=== PATIENT | male | born 1995 | race Caucasian/White ===

== ENCOUNTER 2018-06-03 16:34 | Emergency (ER) | payer MEDICAID, OTHER ==
[~2018-06-03] VITALS: Ht 180.3 cm; Wt 113.4 kg
--- NOTE | 2018-06-03 16:53 | ED Lower Extremity ---
General Stated Complaint: BRUISE;SWELLING;WARM Source: patient, caregiver Exam Limitations: no limitations History of Present Illness Date Seen by Provider: Jun 03, 2018 Time Seen by Provider: 16:49 Initial Comments Patient is a 23-year-old male who presents to the emergency room with complaints of a bruise to his left lateral and posterior thigh. He reports that 1 week ago he was at a swimming event at the [facility] in [facility] when he slipped and fell onto that left thigh. He is brought in by his care workers with concerns with the bruise is changing colors and has a warmer feel to it. Denies pain, was able to ambulate without difficulty. Onset: last week Pain/Injury Location: left knee Method of Injury: fell Allergies and Home Medications Patient Home Medication List Home Medication List Reviewed: Yes Review of Systems Constitutional: see HPI; No chills, No fever Skin: see HPI, other (bruising to his left lateral and posterior thigh.) All Other Systems Reviewed Negative Unless Noted: Yes Past Soczoza-Gqwoji-Xuvdal Hx Past Med/Social Hx: Reviewed Nursing Past Med/Soc Hx Family Medical History Reviewed Nursing Family Hx Physical Exam Vital Signs Vital Signs - First Documented 06/03/18 16:44 Temp 96.9 Pulse 84 Resp 19 B/P (MAP) 142/69 (93) Pulse Ox 97 O2 Delivery Room Air Capillary Refill : Height, Weight, BMI Height: '" Weight: lbs. oz. kg; BMI Method: General Appearance: WD/WN, no apparent distress Neck: non-tender, full range of motion, supple, normal inspection Cardiovascular: regular rate, rhythm, no edema, no gallop, no JVD, no murmur Respiratory: chest non-tender, lungs clear, normal breath sounds, no respiratory distress, no accessory muscle use Legs: left leg ecchymosis (there is a large area of ecchymosis at different stages of healing on his left inner thigh and posterior thigh. There is approximately a 10 x 10cm area of ecchymosis. The patient is nontender on exam.) Neurologic/Psychiatric: alert, normal mood/affect, oriented x 3 Skin: normal color, warm/dry Progress/Results/Core Measures Results/Orders Vital Signs/I&O 06/03/18 06/03/18 16:44 16:58 Temp 96.9 96.9 Pulse 84 84 Resp 19 19 B/P (MAP) 142/69 (93) 142/69 (93) Pulse Ox 97 97 O2 Delivery Room Air Progress Progress Note : Time: 16:50 Progress Note I have seen and evaluated the patient. The patient is not tender and he is able to bare weight with out difficulty. The bruise is a and advanced state of healing. I am not ordering imaging due to no pain, full range of motion with out pain, non tender on palpation. He agrees with plans for discharge and return precautions were given. Departure Impression Primary Impression: Ecchymosis Additional Impression: Contusion Disposition: 01 HOME, SELF-CARE Condition: Stable/Unchanged Departure-Patient Inst. Decision time for Depature: 16:52 Referrals: NO,LOCAL PHYSICIAN (PCP) Primary Care Physician Patient Instructions: Contusion (DC), LOCAL PHYSICIAN LIST Add. Discharge Instructions: Continue to use ibuprofen and Tylenol as directed by the bottle for pain. He may use ice to the sore areas to help with inflammation. Return back to the emergency room for any worsening symptoms. Follow-up with a primary care provider within 1 week for recheck. Images Extremities-Lower 1 - Ecchymosis VILMA ROBERSON Jun 03, 2018 16:53
[2018-06-03 16:58] VITALS: BP 142/69
--- OUTSIDE RECORDS SUMMARY | 2018-06-03 19:12 | XMS REPORT ---
Author Author [facility] Medical Staff Organization [facility] Address [address] [facility] [place] [id number] Phone [phone] Care Team Providers Care Granite Polisher Machine Name Role Phone TRI CUNNINGHAM, KLAUDIA PHILLIPS Unavailable Summary purpose CCDA Sent to [facility] Chief Complaint and Reason for Visit No authorized Reason for Visit (Admitting Diagnosis) is available for this visit. Problem list No authorized problems tracked for continuity of care are available for this visit. Encounters No authorized problems tracked for encounter diagnoses are available for this visit. Medications No medications recorded for this patient visit Allergies, adverse reactions, alerts No allergy information is available for this patient. Immunizations No immunizations recorded for this patient visit Relevant diagnostic tests and/or laboratory data No authorized results are available for this patient visit History of procedures Procedure Code Code Type Description Date Performed Performing Physician 97841 CPT-4 BL SMEAR W/DIFF WBC COUNT 01-26-2017 KLAUDIA BARTLETT 06543 CPT-4 COMPLETE CBC, AUTOMATED 01-26-2017 KLAUDIA BARTLETT Functional status No functional or cognitive status observations are available for this visit. Vital signs No authorized vital signs are available for this visit. Social history No Social History or smoking status observations were recorded for this visit. ( Unknown if ever smoked.) Treatment Plan No treatment plan text is available for this visit. Hospital discharge instructions No discharge instruction text is available for this visit.
--- OUTSIDE RECORDS SUMMARY | 2018-06-03 19:12 | XMS REPORT ---
Author Author [facility] Medical Staff Organization [facility] Address [address] [facility] [place] [id number] Phone [phone] Care Team Providers Care Hardware Design Engineer Name Role Phone TRI CUNNINGHAM, KLAUDIA PHILLIPS Unavailable Summary purpose CCDA Sent to [facility] Chief Complaint and Reason for Visit No [...] Code Type Description Date Performed Performing Physician 38418 CPT-4 COMPLETE CBC W/AUTO DIFF WBC 02-27-2017 KLAUDIA BARTLETT Functional status No functional or [...]
--- OUTSIDE RECORDS SUMMARY | 2018-06-03 19:12 | XMS REPORT ---
Author Author [facility] Medical Staff Organization [facility] Address [address] [place], [place] [address] Phone [phone] Care Team Providers Care Photographic Equipment Inspector Name Role Phone TRI CUNNINGHAM, KLAUDIA PHILLIPS Unavailable Summary purpose CCDA Sent to [facility] Chief Complaint and Reason for Visit Admit Diagnosis 1 HIGH RISK MEDS Problem list No authorized problems tracked for [...] Code Type Description Date Performed Performing Physician 80896 CPT-4 ROUTINE VENIPUNCTURE 04-20-2017 KLAUDIA BARTLETT 20964 CPT-4 COMPLETE CBC W/AUTO DIFF WBC 04-20-2017 KLAUDIA BARTLETT Functional status No functional or [...]
--- OUTSIDE RECORDS SUMMARY | 2018-06-03 19:12 | XMS REPORT ---
Author Author [facility] Medical Staff Organization [facility] Address [address] [facility] [place] [id number] Phone [phone] Care Team Providers Care Bevel Mill Operator Name Role Phone TRI CUNNINGHAM, KLAUDIA PHILLIPS Unavailable Summary purpose CCDA Sent to [facility] Chief Complaint and Reason for Visit [...] Code Type Description Date Performed Performing Physician 46358 CPT-4 ROUTINE VENIPUNCTURE 03-16-2017 KLAUDIA BARTLETT 22287 CPT-4 COMPLETE CBC W/AUTO DIFF WBC 03-16-2017 KLAUDIA BARTLETT Functional status No functional or [...]
--- OUTSIDE RECORDS SUMMARY | 2018-06-03 19:12 | XMS REPORT ---
Author Author [facility] Medical Staff Organization [facility] Address [address] [id number] Phone [phone] Care Team Providers Care Director Experimental Medicine Name Role Phone TRI CUNNINGHAM, KLAUDIA PHILLIPS Unavailable Summary purpose CCDA Sent to [facility] Chief Complaint and Reason for [...] Code Type Description Date Performed Performing Physician 95222 CPT-4 COMPLETE CBC W/AUTO DIFF WBC 02-02-2017 KLAUDIA BARTLETT Functional status No functional or [...]
--- OUTSIDE RECORDS SUMMARY | 2018-06-03 19:12 | XMS REPORT ---
Author Author [facility] Medical Staff Organization [facility] Address [address] [place] [id number] Phone [phone] Care Team Providers Care Component Assembler Name Role Phone TRI CUNNINGHAM, KLAUDIA PHILLIPS Unavailable Summary purpose CCDA Sent to [facility] Chief Complaint and Reason for Visit [...] Code Type Description Date Performed Performing Physician 19843 CPT-4 COMPLETE CBC W/AUTO DIFF WBC 04-03-2017 KLAUDIA BARTLETT Functional status No functional or [...]
--- OUTSIDE RECORDS SUMMARY | 2018-06-03 19:12 | XMS REPORT ---
Author Author [facility] Medical Staff Organization [facility] Address [address] [place] [id number] Phone [phone] Care Team Providers Care Facility Worker Name Role Phone TRI CUNNINGHAM, KLAUDIA PHILLIPS Unavailable Summary purpose CCDA Sent to [facility] Chief Complaint and Reason for [...] Code Type Description Date Performed Performing Physician 21348 CPT-4 BL SMEAR W/DIFF WBC COUNT 2017 KLAUDIA BARTLETT 34542 CPT-4 COMPLETE CBC, AUTOMATED 2017 KLAUDIA BARTLETT Functional status No functional or [...]
--- OUTSIDE RECORDS SUMMARY | 2018-06-03 19:12 | XMS REPORT ---
Author Author [facility] Medical Staff Organization [facility] Address [address] [facility] [place] [id number] Phone [phone] Care Team Providers Care Control Supervisor Name Role Phone TRI CUNNINGHAM, KLAUDIA PHILLIPS Unavailable Summary purpose CCDA Sent to [facility] Chief Complaint and Reason for Visit [...] Code Type Description Date Performed Performing Physician 01052 CPT-4 BL SMEAR W/DIFF WBC COUNT 01-12-2017 KLAUDIA BARTLETT 66307 CPT-4 COMPLETE CBC, AUTOMATED 01-12-2017 KLAUDIA BARTLETT Functional status No functional or [...]
--- OUTSIDE RECORDS SUMMARY | 2018-06-03 19:12 | XMS REPORT ---
Author Author [facility] Medical Staff Organization [facility] Address [address] [place] [place] [address] Phone [phone] Care Team Providers Care Integrity Manager Name Role Phone TRI CUNNINGHAM, KLAUDIA PHILLIPS Unavailable Summary purpose CCDA Sent to [facility] Chief Complaint and Reason for Visit [...] Code Type Description Date Performed Performing Physician 78286 CPT-4 ROUTINE VENIPUNCTURE 03-30-2017 KLAUDIA BARTLETT 47751 CPT-4 BL SMEAR W/DIFF WBC COUNT 03-30-2017 KLAUDIA BARTLETT 50590 CPT-4 COMPLETE CBC, AUTOMATED 03-30-2017 KLAUDIA BARTLETT Functional status No functional or [...]
--- OUTSIDE RECORDS SUMMARY | 2018-06-03 19:13 | XMS REPORT ---
Author Author [facility] Medical Staff Organization [facility] Address [address] [facility] [place] [id number] Phone [phone] Care Team Providers Care Placement Secretary Name Role Phone TRI CUNNINGHAM, KLAUDIA PHILLIPS Unavailable Summary purpose CCDA Sent to [facility] Chief Complaint and Reason for Visit No [...] Code Type Description Date Performed Performing Physician 23698 CPT-4 ROUTINE VENIPUNCTURE 04-01-2017 KLAUDIA BARTLETT 81855 CPT-4 COMPLETE CBC W/AUTO DIFF WBC 04-01-2017 KLAUDIA BARTLETT Functional status No functional or [...]
--- OUTSIDE RECORDS SUMMARY | 2018-06-03 19:13 | XMS REPORT ---
Author Author [facility] Medical Staff Organization [facility] Address [address] [place] [id number] Phone [phone] Care Team Providers Care Cyber Security Specialist Name Role Phone TRI CUNNINGHAM, KLAUDIA PHILLIPS Unavailable Summary purpose CCDA Sent to [facility] Chief Complaint and Reason for Visit [...] Code Type Description Date Performed Performing Physician 52072 CPT-4 COMPLETE CBC W/AUTO DIFF WBC 04-13-2017 KLAUDIA BARTLETT Functional status No functional or [...]
--- OUTSIDE RECORDS SUMMARY | 2018-06-03 19:13 | XMS REPORT ---
Author Author [facility] Medical Staff Organization [facility] Address [address] [place], [place] [address] Phone [phone] Summary purpose CCDA Sent to [facility] Chief Complaint and Reason for Visit Admit Diagnosis 1 ADHD, ODD Problem list No authorized problems tracked for [...] Code Type Description Date Performed Performing Physician 51670 CPT-4 COMPREHEN METABOLIC PANEL 11-03-2016 KLAUDIA BARTLETT 00834 CPT-4 GLYCOSYLATED HEMOGLOBIN TEST 11-03-2016 KLAUDIA BARTLETT 22494 CPT-4 LIPID PANEL 11-03-2016 KLAUDIA BARTLETT 35946 CPT-4 ASSAY THYROID STIM HORMONE 11-03-2016 KLAUDIA BARTLETT 76180 CPT-4 ASSAY, DIPROPYLACETIC ACID 11-03-2016 KLAUDIA BARTLETT 96675 CPT-4 COMPLETE CBC W/AUTO DIFF WBC 11-03-2016 KLAUDIA BARTLETT Functional status No functional or [...]
--- OUTSIDE RECORDS SUMMARY | 2018-06-03 19:13 | XMS REPORT ---
Author Author [facility] Medical Staff Organization [facility] Address [address] [place] [id number] Phone [phone] Care Team Providers Care Patient Registration Manager Name Role Phone TRI CUNNINGHAM, KLAUDIA PHILLIPS Unavailable Summary purpose CCDA Sent to [facility] Chief Complaint and Reason for [...] Code Type Description Date Performed Performing Physician 94596 CPT-4 COMPLETE CBC W/AUTO DIFF WBC 01-05-2017 KLAUDIA BARTLETT Functional status No functional or [...]
--- OUTSIDE RECORDS SUMMARY | 2018-06-03 19:13 | XMS REPORT ---
Author Author [facility] Medical Staff Organization [facility] Address [address] [facility] [place] [id number] Phone [phone] Care Team Providers Care Cryptologic Supervisor Name Role Phone TRI CUNNINGHAM, KLAUDIA PHILLIPS Unavailable Summary purpose CCDA Sent to [facility] Chief Complaint and Reason for [...] Code Type Description Date Performed Performing Physician 70266 CPT-4 BL SMEAR W/DIFF WBC COUNT 01-19-2017 KLAUDIA BARTLETT 19108 CPT-4 COMPLETE CBC, AUTOMATED 01-19-2017 KLAUDIA BARTLETT Functional status No functional or [...]
--- OUTSIDE RECORDS SUMMARY | 2018-06-03 19:13 | XMS REPORT ---
Author Author [facility] Medical Staff Organization [facility] Address [address] [place] [address] Phone [phone] Summary purpose CCDA Sent to [facility] Chief Complaint and Reason for [...] Code Type Description Date Performed Performing Physician 66224 CPT-4 BL SMEAR W/DIFF WBC COUNT 12-01-2016 KLAUDIA BARTLETT 05322 CPT-4 COMPLETE CBC, AUTOMATED 12-01-2016 KLAUDIA BARTLETT Functional status No functional or [...]
--- OUTSIDE RECORDS SUMMARY | 2018-06-03 19:13 | XMS REPORT ---
Author Author [facility] Medical Staff Organization [facility] Address [address] [place] [id number] Phone [phone] Summary purpose CCDA Sent to [facility] Chief Complaint and Reason for Visit [...] Code Type Description Date Performed Performing Physician 94818 CPT-4 COMPLETE CBC W/AUTO DIFF WBC 11-24-2016 KLAUDIA BARTLETT Functional status No functional or [...]
--- OUTSIDE RECORDS SUMMARY | 2018-06-03 19:13 | XMS REPORT ---
Author Author [facility] Medical Staff Organization [facility] Address [address] [facility] [place] [id number] Phone [phone] Care Team Providers Care Human Resources Advisor Name Role Phone TRI CUNNINGHAM, KLAUDIA PHILLIPS Unavailable Summary purpose CCDA Sent to [facility] Chief Complaint and Reason for Visit [...] Code Type Description Date Performed Performing Physician 40187 CPT-4 BL SMEAR W/DIFF WBC COUNT 12-22-2016 KLAUDIA BARTLETT 76710 CPT-4 COMPLETE CBC, AUTOMATED 12-22-2016 KLAUDIA BARTLETT Functional status No functional or [...]
--- OUTSIDE RECORDS SUMMARY | 2018-06-03 19:13 | XMS REPORT ---
Author Author [facility] Medical Staff Organization [facility] Address [address] [place] [id number] Phone [phone] Care Team Providers Care Still Operator Name Role Phone TRI CUNNINGHAM, KLAUDIA PHILLIPS Unavailable Summary purpose CCDA Sent to [facility] Chief Complaint and Reason for Visit No [...] Code Type Description Date Performed Performing Physician 03250 CPT-4 COMPLETE CBC W/AUTO DIFF WBC 03-09-2017 KLAUDIA BARTLETT Functional status No functional or [...]
--- OUTSIDE RECORDS SUMMARY | 2018-06-03 19:13 | XMS REPORT ---
Author Author [facility] Medical Staff Organization [facility] Address [address] [facility] [place] [id number] Phone [phone] Care Team Providers Care Commercial Estimator Name Role Phone TRI CUNNINGHAM, KLAUDIA PHILLIPS Unavailable Summary purpose CCDA Sent to [facility] Chief Complaint and Reason for [...] Code Type Description Date Performed Performing Physician 51246 CPT-4 BL SMEAR W/DIFF WBC COUNT 12-15-2016 KLAUDIA BARTLETT 16506 CPT-4 COMPLETE CBC, AUTOMATED 12-15-2016 KLAUDIA BARTLETT Functional status No functional or [...]
--- OUTSIDE RECORDS SUMMARY | 2018-06-03 19:13 | XMS REPORT ---
Author Author [facility] Medical Staff Organization [facility] Address [address] [place] [id number] Phone [phone] Summary purpose CCDA Sent to [facility] Chief Complaint and Reason for Visit [...] Code Type Description Date Performed Performing Physician 98820 CPT-4 COMPLETE CBC W/AUTO DIFF WBC 11-17-2016 KLAUDIA BARTLETT Functional status No functional or [...]
--- OUTSIDE RECORDS SUMMARY | 2018-06-03 19:13 | XMS REPORT ---
Author Author [facility] Medical Staff Organization [facility] Address [address] [facility] [place] [id number] Phone [phone] Care Team Providers Care Makeup Sales Advisor Name Role Phone TRI CUNNINGHAM, KLAUDIA PHILLIPS Unavailable Summary purpose CCDA Sent to [facility] Chief Complaint and Reason for [...] Code Type Description Date Performed Performing Physician 94179 CPT-4 ROUTINE VENIPUNCTURE 02-09-2017 KLAUDIA BARTLETT 77807 CPT-4 COMPLETE CBC W/AUTO DIFF WBC 02-09-2017 KLAUDIA BARTLETT Functional status No functional or [...]
--- OUTSIDE RECORDS SUMMARY | 2018-06-03 19:13 | XMS REPORT ---
Author Author [facility] Medical Staff Organization [facility] Address [address] [facility] [place] [address] Phone [phone] Care Team Providers Care Safety Lead Name Role Phone TRI CUNNINGHAM, KLAUDIA PHILLIPS Unavailable Summary purpose CCDA Sent to [facility] Chief Complaint and Reason for [...] Code Type Description Date Performed Performing Physician 24997 CPT-4 COMPLETE CBC W/AUTO DIFF WBC 02-23-2017 KLAUDIA BARTLETT Functional status No functional or [...]
--- OUTSIDE RECORDS SUMMARY | 2018-06-03 19:13 | XMS REPORT ---
Author Author [facility] Medical Staff Organization [facility] Address [address] [facility] [place] [place] [id number] Phone [phone] Care Team Providers Care Last Chalker Name Role Phone TRI CUNNINGHAM, KLAUDIA PHILLIPS Unavailable Summary purpose CCDA Sent to [facility] Chief Complaint and Reason for Visit No [...] Code Type Description Date Performed Performing Physician 11494 CPT-4 ROUTINE VENIPUNCTURE 04-08-2017 KLAUDIA BARTLETT 49872 CPT-4 BL SMEAR W/DIFF WBC COUNT 04-08-2017 KLAUDIA BARTLETT 53240 CPT-4 COMPLETE CBC, AUTOMATED 04-08-2017 KLAUDIA BARTLETT Functional status No functional or [...]
--- OUTSIDE RECORDS SUMMARY | 2018-06-03 19:13 | XMS REPORT ---
Author Author [facility] Medical Staff Organization [facility] Address [address] [facility] [place] [id number] Phone [phone] Care Team Providers Care Straw Hat Brim Cutter Operator Name Role Phone TRI CUNNINGHAM, KLAUDIA PHILLIPS Unavailable Summary purpose CCDA Sent to [facility] Chief Complaint and Reason for Visit [...] Code Type Description Date Performed Performing Physician 25257 CPT-4 COMPLETE CBC W/AUTO DIFF WBC 12-29-2016 KLAUDIA BARTLETT Functional status No functional or [...]
--- OUTSIDE RECORDS SUMMARY | 2018-06-03 19:13 | XMS REPORT ---
Author Author [facility] Medical Staff Organization [facility] Address [address] [facility] [place] [address] Phone [phone] Care Team Providers Care Pipe Racker Name Role Phone TRI CUNNINGHAM, KLAUDIA PHILLIPS Unavailable Summary purpose CCDA Sent to [facility] Chief Complaint and Reason for Visit [...] Code Type Description Date Performed Performing Physician 59982 CPT-4 ROUTINE VENIPUNCTURE 04-27-2017 KLAUDIA BARTLETT 13231 CPT-4 COMPLETE CBC W/AUTO DIFF WBC 04-27-2017 KLAUDIA BARTLETT Functional status No functional or [...]
--- OUTSIDE RECORDS SUMMARY | 2018-06-03 19:13 | XMS REPORT ---
Author Author [facility] Medical Staff Organization [facility] Address [address] [facility] [place] [id number] Phone [phone] Care Team Providers Care Chemical Educator Name Role Phone TRI CUNNINGHAM, KLAUDIA PHILLIPS [...] Code Type Description Date Performed Performing Physician 29243 CPT-4 ROUTINE VENIPUNCTURE 04-10-2017 KLAUDIA BARTLETT 05698 CPT-4 BL SMEAR W/DIFF WBC COUNT 04-10-2017 KLAUDIA BARTLETT 39532 CPT-4 COMPLETE CBC, AUTOMATED 04-10-2017 KLAUDIA BARTLETT Functional status No functional or [...]
--- OUTSIDE RECORDS SUMMARY | 2018-06-03 19:13 | XMS REPORT ---
Author Author [facility] Medical Staff Organization [facility] Address [address] [facility] [place] [id number] Phone [phone] Care Team Providers Care Assistant Director Of Plant Operations Name Role Phone TRI CUNNINGHAM, KLAUDIA PHILLIPS Unavailable Summary purpose CCDA Sent to [facility] Chief Complaint and Reason for Visit No [...] Code Type Description Date Performed Performing Physician 84971 CPT-4 ROUTINE VENIPUNCTURE 04-06-2017 KLAUDIA BARTLETT 98247 CPT-4 BL SMEAR W/DIFF WBC COUNT 04-06-2017 KLAUDIA BARTLETT 04527 CPT-4 COMPLETE CBC, AUTOMATED 04-06-2017 KLAUDIA BARTLETT Functional status No functional or [...]
--- OUTSIDE RECORDS SUMMARY | 2018-06-03 19:14 | XMS REPORT ---
Author Author SATISH GAXIOLA [facility] Address [address] [place] [address] Care Team Providers Care Dismantler Name Role Phone SATISH GAXIOLA Unavailable PROBLEMS Unknown Problems ALLERGIES No Known Allergies ENCOUNTERS Encounter Location Date Diagnosis [facility] [address] [facility] [id number] [address] Mar, Insect bite, initial encounter W57.XXXA and Cellulitis of right lower extremity L03.115 IMMUNIZATIONS No Known Immunizations SOCIAL HISTORY Never Assessed REASON FOR VISIT Possible spider bite on right lower leg started a few days ago JStrasserRN PLAN OF CARE Activity Details Follow Up prn Reason: VITAL SIGNS Height 70.5 in 2018-03-30 Weight 243.2 lbs 2018-03-30 Temperature 97.2 degrees Fahrenheit 2018-03-30 Heart Rate 88 bpm 2018-03-30 Respiratory Rate 22 2018-03-30 BMI 34.40 kg/m2 2018-03-30 Blood pressure systolic 112 mmHg 2018-03-30 Blood pressure diastolic 64 mmHg 2018-03-30 MEDICATIONS Medication Instructions Dosage Frequency Start Date End Date Duration Status Lamotrigine 150 MG Orally Twice a day 1 tablet 12h Active Aripiprazole 10 MG Orally Once a day 1 tablet 24h Active Clonazepam 0.5 MG Orally Once a day 1 tablet at bedtime 24h Active Melatonin 3 MG Orally Once a day 2 tablet at bedtime as needed with food 24h Active Divalproex Sodium 500 MG Orally Twice a day 3 tablets 12h Active Dapsone 100 mg Orally Once a day 1 tablet 24h Mar, Apr, 10 day(s) Active Protonix 20 MG Orally Once a day 1 tablet 24h Active Bactrim DS 800-160 MG Orally Twice a day 1 tablet 12h Mar, Apr, 10 day(s) Active Zyprexa 10 MG Orally Twice a day 1 tablet 12h Active Ritalin 10 MG Orally Twice a day 1 tablet 12h Active RESULTS No Results PROCEDURES No Known procedures INSTRUCTIONS MEDICATIONS ADMINISTERED No Known Medications
--- OUTSIDE RECORDS SUMMARY | 2018-06-03 19:14 | XMS REPORT ---
Author Marcelino Goodson Organization [facility] Address [address] [place], [place] [address] Care Team Providers Care Generator Technician Name Role Phone Marcelino Mayes PCP Unavailable Allergies and Adverse Reactions Name Reaction Notes seasonal allergies Plan of Treatment Planned Activity Comments Planned Date Planned Time Plan/Goal COMPREHENSIVE METABOLIC PANEL 04/21/2017 12:00 AM CBC W/ AUTO DIFF (RFLX MAN DIFF IF IND). 04/21/2017 12:00 AM ESR 04/21/2017 12:00 AM CRP 04/21/2017 12:[address] ABD AND PELVIS W/WO CONTRAST 04/21/2017 12:00 AM Medications Active Name Start Date Estimated Completion Date SIG Comments mupirocin 2 % topical ointment 03/11/2017 apply a small amount to the affected area by topical route 3 times per day pantoprazole 20 mg oral tablet,delayed release (DR/EC) 04/21/2017 take 1 tablet (20 mg) by oral route once daily Name Start Date Expiration Date SIG Comments Miralax 17 gram oral powder in packet 03/11/2017 03/14/2017 take 1 packet (17 gram) mixed with 8 oz. water, juice, soda, coffee or tea by oral route once daily for 3 days Problem List Not available. Vital Signs Date Time BP-Sys(mm[Hg] BP-Shyann(mm[Hg]) HR(bpm) RR(rpm) Temp WT HT HC BMI BSA BMI Percentile O2 Sat(%) 04/21/2017 2:49:00 PM 128 mmHg 74 mmHg 84 bpm 17 rpm 96.9 F 256 lbs 71.5 in 35.21 kg/m2 2.42 m2 99 % 03/11/2017 2:12:00 PM 138 mmHg 80 mmHg 91 bpm 18 rpm 97.1 F 256.187 lbs 99 % Social History Name Description Comments Tobacco Never smoker Alcohol Never History of Procedures Date Ordered Description Order Status 03/11/2017 2:26 PM URINALYSIS AUTO W/O SCOPE Reviewed 03/11/2017 12:00 AM X-RAY EXAM OF ABDOMEN Reviewed 04/21/2017 12:00 AM COLLECTION VENOUS BLOOD VENIPUNCTURE Reviewed Results Summary Date and Description Results 03/11/2017 2:26 PM Clarity Ur Clear Color Ur Lt Yellow Glucose Ur-sCnc Neg Bilirub Ur Ql Strip Neg Ketones Ur Ql Strip Trace Sp Gr Ur Qn 1.020 Hgb Ur Ql Strip Neg pH Ur-LsCnc 7.5 Prot Ur Ql Strip Neg Urobilinogen Ur-mCnc 0.2 Nitrite Ur Ql Strip Neg WBC Est Ur Ql Strip Neg History Of Immunizations Not available. History of Past Illness Name Date of Onset Comments MR (mental retardation) Schizoaffective disorder, bipolar type ADHD ODD Autism Seizure Epilepsy Seasonal allergic rhinitis Generalized abdominal pain Mar 11 2017 2:25PM Constipation, unspecified constipation type Mar 11 2017 2:25PM Abdominal pain, Generalized Apr 21 2017 2:56PM Epigastric pain Apr 21 2017 2:56PM Gastroesophageal reflux disease, esophagitis presence not specified Apr 21 2017 2:56PM Vomiting, intractability of vomiting not specified, presence of nausea not specified, unspecified vomiting type Apr 21 2017 2:56PM Epigastric abdominal pain Apr 21 2017 3:39PM Gastroesophageal reflux disease Apr 21 2017 3:39PM Abdominal pain Apr 21 2017 3:39PM Vomiting, unspecified Apr 21 2017 3:39PM Payers Insurance Name Company Name Plan Name Plan Number Policy Number Policy Group Number Start Date BCBS [facility] [id number] Tuesday, 2010 [facility] [place] State Plan [facility] State Plan [id number] N/A History of Encounters Visit Date Visit Type Provider 04/21/2017 Office visit Marcelino Mayes APRN 03/11/2017 Office visit Marcelino Mayes APRN
--- OUTSIDE RECORDS SUMMARY | 2018-06-03 19:14 | XMS REPORT ---
Author Marcelino Goodson Organization [facility] Address [address] [place], [place] [address] Care Team Providers Care Peer Health Promoter Name Role Phone Marcelino Mayes PCP Unavailable Allergies and Adverse Reactions Name Reaction Notes seasonal allergies Plan of Treatment Planned Activity Comments Planned Date Planned Time Plan/Goal CT ABD AND PELVIS W/WO CONTRAST 04/21/2017 12:00 AM COMPREHENSIVE METABOLIC PANEL 04/21/2017 12:00 AM CBC W/ AUTO DIFF (RFLX MAN DIFF IF IND). 04/21/2017 12:00 AM ESR 04/21/2017 12:00 AM CRP 04/21/2017 12:00 AM Medications Active Name Start [...] Number Policy Group Number Start Date BCBS [facility] [id number] Tuesday, 2010 [facility] [place] [facility] State Plan [id number] N/A History of Encounters Visit Date Visit Type Provider 04/21/2017 Office visit Marcelino Mayes APRN 03/11/2017 Office visit Marcelino Mayes APRN
--- OUTSIDE RECORDS SUMMARY | 2018-06-03 19:14 | XMS REPORT ---
Author Author [facility] Medical Staff Organization [facility] Address [address] [facility] [place] [id number] Phone [phone] Care Team Providers Care Machine Turner Name Role Phone TRI CUNNINGHAM, KLAUDIA PHILLIPS Unavailable Summary purpose CCDA Sent to [facility] Chief Complaint and Reason [...] Code Type Description Date Performed Performing Physician 86968 CPT-4 BL SMEAR W/DIFF WBC COUNT 02-16-2017 KLAUDIA BARTLETT 72790 CPT-4 COMPLETE CBC, AUTOMATED 02-16-2017 KLAUDIA BARTLETT Functional status No functional or [...]
--- OUTSIDE RECORDS SUMMARY | 2018-06-03 19:14 | XMS REPORT ---
Author Author [facility] Medical Staff Organization [facility] Address [address] [place] [id number] Phone [phone] Care Team Providers Care Sequins Winder Name Role Phone TRI CUNNINGHAM, KLAUDIA PHILLIPS Unavailable Summary purpose CCDA Sent to [facility] Chief Complaint and Reason for Visit No [...] Code Type Description Date Performed Performing Physician 53961 CPT-4 COMPLETE CBC W/AUTO DIFF WBC 12-08-2016 KLAUDIA BARTLETT Functional status No functional or [...]
--- OUTSIDE RECORDS SUMMARY | 2018-06-03 19:14 | XMS REPORT ---
Author Marcelino Goodson Organization [facility] Address [address] [place], [place] [address] Care Team Providers Care Aws Developer Name Role Phone Marcelino Mayes PCP Unavailable [...] Number Policy Group Number Start Date BCBS [facility] [id number] Tuesday, 2010 [facility] - [place] State Plan [facility] State Plan [id number] N/A History of Encounters Visit Date Visit Type Provider 04/21/2017 Office visit Marcelino Mayes APRN 03/11/2017 Office visit Marcelino Mayes APRN
--- OUTSIDE RECORDS SUMMARY | 2018-06-03 19:14 | XMS REPORT ---
Author Author Marcelino Mayes Organization [facility] Address [address] [place], [place] [address] Care Team Providers Care Licensing Registration Examiner Name Role Phone Marcelino Mayes PCP Unavailable Allergies and Adverse Reactions Name Reaction Notes seasonal allergies Plan of Treatment Planned Activity Comments Planned Date Planned Time Plan/Goal XR abdomen, AP and oblique views 03/11/2017 12:00 AM Medications Active Name Start Date Estimated Completion Date SIG Comments Miralax 17 gram oral powder in packet 03/11/2017 03/14/2017 take 1 packet (17 gram) mixed with 8 oz. water, juice, soda, coffee or tea by oral route once daily for 3 days mupirocin 2 % topical ointment 03/11/2017 apply a small amount to the affected area by topical route 3 times per day Problem List Not available. Vital Signs Date Time BP-Sys(mm[Hg] BP-Shyann(mm[Hg]) HR(bpm) RR(rpm) Temp WT HT HC BMI BSA BMI Percentile O2 Sat(%) 03/11/2017 2:12:00 PM 138 mmHg 80 mmHg 91 bpm 18 rpm 97.1 F 256.187 lbs 99 % Social History Name Description Comments Tobacco Never smoker Alcohol Never History of Procedures Date Ordered Description Order Status 03/11/2017 2:26 PM URINALYSIS AUTO W/O SCOPE Reviewed Results Summary Date and Description Results [...] unspecified constipation type Mar 11 2017 2:25PM Payers Insurance Name Company Name Plan Name Plan Number Policy Number Policy Group Number Start Date [facility] [place] State Plan [facility] - [facility] [place] State Plan [id number] N/A History of Encounters Visit Date Visit Type Provider 03/11/2017 Office visit Marcelino Mayes APRN
--- OUTSIDE RECORDS SUMMARY | 2018-06-03 19:15 | XMS REPORT | Continuity of Care Document ---
Author Author [facility] Organization [facility] Address Unknown Phone Unavailable Allergies There is no data. Medications There is no data. Problems Date Dx Coded Attending Type Code Diagnosis Diagnosed By 11/03/2016 KLAUDIA BARTLETT MD F90.0 Attn-defct hyperactivity disorder, predom inattentive type 11/03/2016 KLAUDIA BARTLETT MD Z79.899 Other city distribution clerk (current) drug therapy 11/17/2016 KLAUDIA BARTLETT MD Z79.899 Other city distribution clerk (current) drug therapy 11/24/2016 KLAUDIA BARTLETT MD Z79.899 Other correction (current) drug therapy 12/01/2016 KLAUDIA BARTLETT MD Z79.899 Other correction (current) drug therapy 12/08/2016 KLAUDIA BARTLETT MD Z79.899 Other correction (current) drug therapy 12/15/2016 KLAUDIA BARTLETT MD Z79.899 Other city distribution clerk (current) drug therapy 12/22/2016 KLAUDIA BARTLETT MD Z79.899 Other city distribution clerk (current) drug therapy 12/29/2016 KLAUDIA BARTLETT MD Z79.899 Other correction (current) drug therapy 01/05/2017 KLAUDIA BARTLETT MD Z79.899 Other city distribution clerk (current) drug therapy 01/12/2017 KLAUDIA BARTLETT MD Z79.899 Other city distribution clerk (current) drug therapy 01/19/2017 KLAUDIA BARTLETT MD Z79.899 Other city distribution clerk (current) drug therapy 01/26/2017 KLAUDIA BARTLETT MD Z79.899 Other city distribution clerk (current) drug therapy 02/02/2017 KLAUDIA BARTLETT MD Z79.899 Other correction (current) drug therapy 02/09/2017 KLAUDIA BARTLETT MD Z79.899 Other correction (current) drug therapy 02/16/2017 KLAUDIA BARTLETT MD Z79.899 Other correction (current) drug therapy 02/23/2017 KLAUDIA BARTLETT MD Z79.899 Other city distribution clerk (current) drug therapy 02/27/2017 KLAUDIA BARTLETT MD Z79.899 Other city distribution clerk (current) drug therapy 03/09/2017 KLAUDIA BARTLETT MD Z79.899 Other city distribution clerk (current) drug therapy 03/16/2017 KLAUDIA BARTLETT MD Z79.899 Other city distribution clerk (current) drug therapy 2017 KLAUDIA BARTLETT MD Z79.899 Other correction (current) drug therapy 03/30/2017 KLAUDIA BARTLETT MD Z79.899 Other city distribution clerk (current) drug therapy 04/01/2017 KLAUDIA BARTLETT MD Z79.899 Other correction (current) drug therapy 04/03/2017 KLAUDIA BARTLETT MD Z79.899 Other city distribution clerk (current) drug therapy 04/06/2017 KLAUDIA BARTLETT MD Z79.899 Other correction (current) drug therapy 04/08/2017 KLAUDIA BARTLETT MD Z79.899 Other correction (current) drug therapy 04/10/2017 KLAUDIA BARTLETT MD Z79.899 Other city distribution clerk (current) drug therapy 04/13/2017 KLAUDIA BARTLETT MD Z79.899 Other city distribution clerk (current) drug therapy 04/20/2017 KLAUDIA BARTLETT MD Z79.899 Other correction (current) drug therapy 04/27/2017 KLAUDIA BARTLETT MD Z79.899 Other city distribution clerk (current) drug therapy Procedures Code [place] [address] COMPREHEN METABOLIC PANEL KLAUDIA BARTLETT MD 11/03/2016 76048 LIPID PANEL KLAUDIA BARTLETT MD 11/03/2016 58454 ASSAY DIPROPYLACETIC ACD TOT KLAUDIA BARTLETT MD 11/03/2016 19876 GLYCOSYLATED HEMOGLOBIN TEST KLAUDIA BARTLETT MD 11/03/2016 40082 ASSAY THYROID STIM HORMONE KLAUDIA BARTLETT MD 11/03/2016 24298 COMPLETE CBC W/AUTO DIFF WBC KLAUDIA BARTLETT MD 11/03/2016 79506 COMPLETE CBC W/AUTO DIFF WBC TRI CUNNINGHAM MAY B 11/17/2016 95250 COMPLETE CBC W/AUTO DIFF WBC TRI CUNNINGHAM MAY B 11/24/2016 28530 BL SMEAR W/DIFF WBC COUNT TRI CUNNINGHAM, MAY B 12/01/2016 44870 COMPLETE CBC AUTOMATED TRI CUNNINGHAM MAY B 12/01/2016 28177 COMPLETE CBC W/AUTO DIFF WBC TRI CUNNINGHAM MAY B 12/08/2016 48349 BL SMEAR W/DIFF WBC COUNT TRI CUNNINGHAM MAY B 12/15/2016 64643 COMPLETE CBC AUTOMATED TRI CUNNINGHAM MAY B 12/15/2016 04876 BL SMEAR W/DIFF WBC COUNT TRI CUNNINGHAM MAY B 12/22/2016 98187 COMPLETE CBC AUTOMATED TRI CUNNINGHAM MAY B 12/22/2016 72183 COMPLETE CBC W/AUTO DIFF WBC TRI CUNNINGHAM MAY B 12/29/2016 12200 COMPLETE CBC W/AUTO DIFF WBC TRI CUNNINGHAM MAY B 01/05/2017 81733 BL SMEAR W/DIFF WBC COUNT TRI CUNNINGHAM MAY B 01/12/2017 08588 COMPLETE CBC AUTOMATED TRI CUNNINGHAM MAY B 01/12/2017 07524 BL SMEAR W/DIFF WBC COUNT TRI CUNNINGHAM MAY B 01/19/2017 66087 COMPLETE CBC AUTOMATED TRI CUNNINGHAM MAY B 01/19/2017 63383 BL SMEAR W/DIFF WBC COUNT TRI CUNNINGHAM MAY B 01/26/2017 38843 COMPLETE CBC AUTOMATED TRI CUNNINGHAM MAY B 01/26/2017 81659 COMPLETE CBC W/AUTO DIFF WBC TRI CUNNINGHAM MAY B 02/02/2017 41638 ROUTINE VENIPUNCTURE TRI CUNNINGHAM MAY B 02/09/2017 52775 COMPLETE CBC W/AUTO DIFF WBC TRI CUNNINGHAM MAY B 02/09/2017 39097 BL SMEAR W/DIFF WBC COUNT TRI CUNNINGHAM MAY B 02/16/2017 20797 COMPLETE CBC AUTOMATED TRI CUNNINGHAM MAY B 02/16/2017 34947 COMPLETE CBC W/AUTO DIFF WBC TRI CUNNINGHAM MAY B 02/23/2017 67330 COMPLETE CBC W/AUTO DIFF WBC TRI CUNNINGHAM MAY B 02/27/2017 75774 COMPLETE CBC W/AUTO DIFF WBC TRI CUNNINGHAM MAY B 03/09/2017 49134 ROUTINE VENIPUNCTURE JORDIN BARTLETT MDNETH B 03/16/2017 12473 COMPLETE CBC W/AUTO DIFF WBC JORDIN BARTLETT MDNETH B 03/16/2017 80255 BL SMEAR W/DIFF WBC COUNT JORDIN BARTLETT MDNETH B 2017 09561 COMPLETE CBC AUTOMATED JORDIN BARTLETT MDNETH B 2017 69899 ROUTINE VENIPUNCTURE JORDIN BARTLETT MDNETH B 03/30/2017 80406 BL SMEAR W/DIFF WBC COUNT JORDIN BARTLETT MDNETH B 03/30/2017 86570 COMPLETE CBC AUTOMATED JORDIN BARTLETT MDNETH B 03/30/2017 36173 ROUTINE VENIPUNCTURE JORDIN BARTLETT MDNETH B 04/01/2017 05642 COMPLETE CBC W/AUTO DIFF WBC JORDIN BARTLETT MDNETH B 04/01/2017 50767 COMPLETE CBC W/AUTO DIFF WBC JORDIN BARTLETT MDNETH B 04/03/2017 37634 ROUTINE VENIPUNCTURE JORDIN BARTLETT MDNETH B 04/06/2017 04472 BL SMEAR W/DIFF WBC COUNT JORDIN BARTLETT MDNETH B 04/06/2017 95714 COMPLETE CBC AUTOMATED JORDIN BARTLETT MDNETH B 04/06/2017 77022 ROUTINE VENIPUNCTURE JORDIN BARTLETT MDNETH B 04/08/2017 51868 BL SMEAR W/DIFF WBC COUNT JORDIN BARTLETT MDNETH B 04/08/2017 76319 COMPLETE CBC AUTOMATED JORDIN BARTLETT MDNETH B 04/08/2017 37936 ROUTINE VENIPUNCTURE JORDIN BARTLETT MDNETH B 04/10/2017 79926 BL SMEAR W/DIFF WBC COUNT JORDIN BARTLETT MDNETH B 04/10/2017 70583 COMPLETE CBC AUTOMATED JORDIN BARTLETT MDNETH B 04/10/2017 72234 COMPLETE CBC W/AUTO DIFF WBC JORDIN BARTLETT MDNETH B 04/13/2017 22432 ROUTINE VENIPUNCTURE JORDIN BARTLETT MDNETH B 04/20/2017 94163 COMPLETE CBC W/AUTO DIFF WBC JORDIN BARTLETT MDNETH B 04/20/2017 28932 ROUTINE VENIPUNCTURE JORDIN BARTLETT MDNETH B 04/27/2017 01994 COMPLETE CBC W/AUTO DIFF WBC JORDIN BARTLETT MDNETH B 04/27/2017 Results There is no data. Encounters ACCT No. Visit Date/Time Discharge Status Pt. Type Provider Facility Loc./Unit Complaint [id number] 04/27/2017 11:12:00 04/27/2017 11:12:00 DIS Outpatient TRI CUNNINGHAM [facility] [id number] 04/20/2017 11:39:00 04/20/2017 11:39:00 DIS Outpatient TRI CUNNINGHAM, [facility] [id number] 04/13/2017 11:33:00 04/13/2017 11:33:00 DIS Outpatient TRI CUNNINGHAM [facility] [id number] 04/10/2017 11:06:00 04/10/2017 11:06:00 DIS Outpatient TRI CUNNINGHAM [facility] [id number] 04/08/2017 11:59:00 04/08/2017 11:59:00 DIS Outpatient TRI CUNNINGHAM [facility] [id number] 04/06/2017 09:56:00 04/06/2017 09:56:00 DIS Outpatient TRI CUNNINGHAM [facility] [id number] 04/03/2017 10:31:00 04/03/2017 10:31:00 DIS Outpatient TRI CUNNINGHAM [facility] [id number] 04/01/2017 17:05:00 04/01/2017 17:05:00 DIS Outpatient TRI CUNNINGHAM [facility] [id number] 03/30/2017 12:29:00 03/30/2017 12:29:00 DIS Outpatient TRI CUNNINGHAM [facility] [id number] 2017 13:10:00 2017 13:10:00 DIS Outpatient TRI CUNNINGHAM [facility] [id number] 03/16/2017 13:18:00 03/16/2017 13:18:00 DIS Outpatient TRI CUNNINGHAM [facility] [id number] 03/09/2017 13:45:00 03/09/2017 13:45:00 DIS Outpatient TRI CUNNINGHAM [facility] [id number] 02/27/2017 17:31:00 02/27/2017 17:31:00 DIS Outpatient TRI CUNNINGHAM [facility] [id number] 02/23/2017 13:39:00 02/23/2017 13:39:00 DIS Outpatient TRI CUNNINGHAM, [facility] [id number] 02/16/2017 12:11:00 02/16/2017 12:11:00 DIS Outpatient TRI CUNNINGHAM, [facility] [id number] 02/09/2017 12:05:00 02/09/2017 12:05:00 DIS Outpatient TRI CUNNINGHAM, [facility] [id number] 02/02/2017 12:06:00 02/02/2017 12:06:00 DIS Outpatient TRI CUNNINGHAM, [facility] [id number] 01/26/2017 13:13:00 01/26/2017 13:13:00 DIS Outpatient TRI CUNNINGHAM, [facility] [id number] 01/19/2017 13:06:00 01/19/2017 13:06:00 DIS Outpatient TRI CUNNINGHAM, [facility] [id number] 01/12/2017 13:18:00 01/12/2017 13:18:00 DIS Outpatient TRI CUNNINGHAM, [facility] [id number] 01/05/2017 13:11:00 01/05/2017 13:11:00 DIS Outpatient TRI CUNNINGHAM [facility] [id number] 12/29/2016 17:20:00 12/29/2016 17:20:00 DIS Outpatient TRI CUNNINGHAM [facility] [id number] 12/22/2016 12:20:00 12/22/2016 12:20:00 DIS Outpatient TRI CUNNINGHAM [facility] [id number] 12/15/2016 12:23:00 12/15/2016 12:23:00 DIS Outpatient TRI CUNNINGHAM [facility] [id number] 12/08/2016 17:39:00 12/08/2016 17:39:00 DIS Outpatient TRI CUNNINGHAM [facility] [id number] 12/01/2016 12:28:00 12/01/2016 12:28:00 DIS Outpatient TRI CUNNINGHAM [facility] [id number] 11/24/2016 12:42:00 11/24/2016 12:42:00 DIS Outpatient TRI CUNNINGHAM [facility] [id number] 11/17/2016 12:35:00 11/17/2016 12:35:00 DIS Outpatient TRI CUNNINGHAM, [facility] [id number] 11/03/2016 15:29:00 11/03/2016 15:29:00 DIS Outpatient TRI CUNNINGHAM, [id number] 04/26/2017 04:01:14 ACT Document Registration [id number] 03/30/2018 11:05:00 03/30/2018 23:59:59 CLS Outpatient SAIM NAYELI [facility] [id number] 04/21/2017 15:26:57 04/21/2017 23:59:59 CLS Outpatient Marcelino Mayes [id number] 03/11/2017 15:04:15 03/11/2017 23:59:59 CLS Outpatient Marcelino Mayes
== END 2018-06-03 16:59 | disposition home or self-care (01) ==
LOC: ER 16:36
DX: S70.12XA Contusion of left thigh, initial encounter (principal); W01.0XXA Fall on same level from slipping, tripping and stumbling without subsequent striking against object, initial encounter; Y92.34 Swimming pool (public) as the place of occurrence of the external cause; Y93.11 Activity, swimming
CPT/HCPCS: 99283